=== PATIENT | male | born 1950 | race Caucasian/White ===

== ENCOUNTER 2017-05-23 12:44 | Inpatient (IN) | payer MEDICARE, OTHER ==
--- NOTE | 2017-05-23 13:02 | ED Physician Chart ---
ED Chief Complaint/HPI - Patient Information Date Seen:: 05/23/17 Time Seen:: 12:50 Chief Complaint:: Weakness History of Present Illness:: onset x 2 days of weakness and dizziness; no report of trauma, H/As, S/T, neck pain, C/P, SOB, Abd. Pain, A/N/V/D/C, fever, chills, or urinary s/s Historian:: Patient, EMS Review:: Nurse's Note Reviewed, Old Chart Reviewed, EMS run form Reviewed ED Review of Systems - Review of Systems General/Constitutional: No fever, No chills, No weight loss, No weakness, No diaphoresis, No edema, No loss of appetite Skin: No skin lesions, No rash, No bruising Head: No headache, No light-headedness Eyes: No loss of vision, No pain, No diplopia ENT: No earache, No nasal drainage, No sore throat, No tinnitus Neck: No neck pain, No swelling, No thyromegaly, No stiffness, No mass noted Cardio Vascular: No chest pain, No palpitations, No PND, No orthopnea, No edema Pulmonary: SOB, Cough, No sputum, Wheezing GI: No nausea, No vomiting, No diarrhea, No pain, No melena, No hematochezia, No constipation, No hematemesis G/U: No dysuria, No frequency, No hematuria, No nacturia Musculoskeletal: No bone or joint pain, No back pain, No muscle pain Endocrine: No polyuria, No polydipsia Psychiatric: No prior psych history, No depression, No anxiety, No suicidal ideation, No homicidal ideation, No auditory hallucination, No visual hallucination Hematopoietic: No bruising, No lymphadenopathy Allergic/Immuno: No urticaria, No angioedema Neurological: No syncope, No focal symptoms, Weakness, No paresthesia, No headache, No seizure, Dizziness, No confusion, No vertigo ED Past Medical History - Past Medical History Obtainable: Yes Past Medical History: HTN, Asthma/COPD, CVA/TIA, Renal stone Family History: Diabetes Melitus, HTN Social History: Non Smoker, No Alcohol, No Drug Use, Single, Care Facility Surgical History: Appendectomy, Cholecystectomy Psychiatricy History: None Medication: Reviewed Family Medical History - Family Member Mother History Unknown: Yes ED Physical Exam - Physical Examination General/Constitutional: Awake, Well-developed, well-nourished, Alert, No distress, GCS 15, Non-toxic appearing, Ambulatory Head: Atraumatic Eyes: Lids, conjuctiva normal, PERRL, EOMI Skin: Nl inspection, No rash, No skin lesions, No ecchymosis, Well hydrated, No lymphadenopathy ENMT: External ears, nose nl, TM canals nl, Nasal exam nl, Lips, teeth, gums nl , Oropharynx nl, Tonsils nl Neck: Nontender, Full ROM w/o pain, No JVD, No nuchal rigidity, No bruit, No mass, No stridor Respiratory: Nl effort/Exclusion, Clear to Auscultation, No Wheeze/Rhonchi/Rales Cardio Vascular: No murmur, gallop, rubs, NL S1 S2, Carotid/Femoral/Distal pulses equal bilaterally Other Cardio Vascular comments:: Irregular Irregular Rhythm GI: No tenderness/rebounding/guarding, No organomegaly, No hernia, Normal BS's, Nondistended, No mass/bruits, No McBurney tenderness : No CVA tenderness Extremities: No tenderness or effusion, Full ROM, normal strength in all extremities, No edema, Normal digits & nails Neuro/Psych: Alert/oriented, DTR's symmetric, Normal sensory exam, Normal motor strength, Judgement/insight normal, Mood normal, Normal gait, No focal deficits Misc: Normal back, No paraspinal tenderness ED Labs/Radiology/EKG Results - Lab Results Comments:: Ca+: 8.5; Albumin: 3.8 - Radiology Results Comments:: CXR: COPD - EKG Interpretations EKG Time:: 13:26 Rate & Rhythm: 82; Atrial Flutter Comments:: non-specific st-t changes ED Septic Shock - . Is Septic Shock (SBP<90, OR Lactate>4 mmol\L) present?: No ED Reassessment (Disposition) - Diagnosis Diagnosis:: Dx: Atrial Flutter; Atrial fibrillation; Hypocalcemia; Hypoalbuminemia; Weakness ; Dizziness; Cardiac arrythmias
[2017-05-23] MEDS ORDERED: Sodium Chloride 0.9% 1,000 ML IV ONE (13:03)
[2017-05-23 13:36] LABS: % BASOPHILS 0.1 % (0.0-2.0); % EOSINOPHILS 1.4 % (0.0-5.0); % LYMPHOCYTES 23.1 % (20.0-50.0); % MONOCYTES 8.7 % (2.0-10.0); % NEUTROPHILS 66.7 % (40.0-80.0); EOSINOPHILE ABSOLUTE 0.1 Th/cmm (0.1-0.4); HEMATOCRIT 41.7 % (41.0-60); HEMOGLOBIN 14.1 gm/dL (12-16); LYMPHOCYTE ABSOLUTE 1.8 Th/cmm (1.5-3.0); MEAN CELL VOLUME 90.5 fl (80-99); MEAN CORPUSCULAR HEMOGLOBIN 30.5 pg (26.0-30.0); MEAN CORPUSCULAR HGB CONC 33.7 pg (28.0-36.0); MEAN PLATELET VOLUME 8.8 fl; MONOCYTE ABSOLUTE 0.7 Th/cmm (0.3-1.0); NEUTROPHILE ABSOLUTE 5.3 Th/cmm (1.8-8.0); PLATELET COUNT 221 Th/cmm (150-400); RED CELL DISTRIBUTION WIDTH 14.7 % (11.5-20.0); WHITE BLOOD COUNT 7.9 Th/cmm (4.8-10.8)
--- NOTE | 2017-05-23 13:56 | Diagnostic Imaging Report ---
CHEST X-RAY: AP view INDICATION: pain COMPARISON: None FINDINGS: There is elevation of right hemidiaphragm. Mild chronic lung changes are noted.. There is no focal consolidation or pleural effusions The heart is normal in size. Postsurgical changes of the upper abdomen are noted. Degenerative changes of the spine are noted with mild scoliosis. Nonspecific gas-filled loops of bowel of the upper abdomen are noted. IMPRESSION: No focal consolidation identified. Postsurgical changes of the upper abdomen.
[2017-05-23 13:57] LABS: ALB/GLOB RATIO 1.7 (1.0-1.8); ALBUMIN 3.8 gm/dL (4.2-5.5); ALKALINE PHOSPHATASE 67 U/L (34-104); ANION GAP 9.9 (7.0-16.0); BILIRUBIN,TOTAL 0.4 mg/dL (0.3-1.0); BUN - UREA NITROGEN 15 mg/dL (7-25); CALCIUM SERUM 8.5 mg/dL (8.6-10.3); CARBON DIOXIDE 27.6 mEq/L (21.0-31.0); CHLORIDE 109 mEq/L (98-107); CHOLESTEROL 108 mg/dL (<200); CREATININE - SERUM 0.6 mg/dL (0.7-1.3); GFR AFRICAN-AMERICAN > 60.0 ml/min (>90); GFR NON AFRICAN-AMERICAN > 60.0 ml/min; GLUCOSE 101 mg/dL (70-105); HDL -HIGH DENSITY LIPOPROTEIN 55 mg/dL (23-92); POTASSIUM SERUM 3.5 mEq/L (3.5-5.1); SGOT 15 U/L (13-39); SGPT/ALT 15 U/L (7-52); SODIUM SERUM 143 mEq/L (136-145); TRIGLYCERIDES 70 mg/dL (<150)
[2017-05-23 13:58] LABS: AMYLASE SERUM < 10 U/L (29-103); LIPASE 8 U/L (11-82)
[2017-05-23 13:59] LABS: INR 1.02 (0.5-1.4); PROTHROMBIN TIME (TEST) 10.6 SECONDS (9.5-11.5)
[2017-05-23] MEDS ORDERED: Hydrocodone/APAP 5mg/325mg Tab PO ONE (18:25)
[2017-05-23] MEDS ORDERED: Hydrocodone/APAP 5mg/325mg Tab ONE (18:36)
[2017-05-23] MEDS ORDERED: Non-Formulary Item 1 EA (Fluticasone/Salmeterol [Advair 250-50 Diskus] 1 PUFF) INH PRN (20:22)
[2017-05-23] MEDS ORDERED: Albuterol Nebulizer 2.5mg/3mL HHN PRN (20:22)
[2017-05-23] MEDS ORDERED: Diltiazem 5 mg/mL 5mL Vial IVP PRN (20:24)
[2017-05-23] MEDS ORDERED: guaiFENesin 200 MG/10 ML UDC PO PRN (20:24)
[2017-05-23] MEDS ORDERED: Ipratropium Neb 0.5 mg/2.5 mL UD IH PRN (20:24)
[2017-05-24] MEDS: Hydrocodone/APAP 5mg/325mg Tab PO PRN ×4 (00:34→21:08)
[2017-05-24] MEDS: D5-0.45NS 1,000 ML IV SCH (10:47)
--- NOTE | 2017-05-24 12:57 | Internal Medicine Prog Note ---
Internal Medicine Subjective - Subjective Service Date: 05/24/17 ([id number] [facility] dictated) Internal Medicine Objective - Results Result Diagrams: 05/23/17 13:25 05/23/17 13:25 Recent Labs: Laboratory Last Values WBC 7.9 Th/cmm (4.8-10.8) 05/23/17 13:25 RBC 4.60 Mil/cmm (4.30-5.70) 05/23/17 13:25 Hgb 14.1 gm/dL (12-16) 05/23/17 13:25 Hct 41.7 % (41.0-60) 05/23/17 13:25 MCV 90.5 fl (80-99) 05/23/17 13:25 MCH 30.5 pg (26.0-30.0) H 05/23/17 13:25 MCHC Differential 33.7 pg (28.0-36.0) 05/23/17 13:25 RDW 14.7 % (11.5-20.0) 05/23/17 13:25 Plt Count 221 Th/cmm (150-400) 05/23/17 13:25 MPV 8.8 fl 05/23/17 13:25 Neutrophils % 66.7 % (40.0-80.0) 05/23/17 13:25 Lymphocytes % 23.1 % (20.0-50.0) 05/23/17 13:25 Monocytes % 8.7 % (2.0-10.0) 05/23/17 13:25 Eosinophils % 1.4 % (0.0-5.0) 05/23/17 13:25 Basophils % 0.1 % (0.0-2.0) 05/23/17 13:25 PT 10.6 SECONDS (9.5-11.5) 05/23/17 13:25 INR 1.02 (0.5-1.4) 05/23/17 13:25 Sodium 143 mEq/L (136-145) 05/23/17 13:25 Potassium 3.5 mEq/L (3.5-5.1) 05/23/17 13:25 Chloride 109 mEq/L (98-107) H 05/23/17 13:25 Carbon Dioxide 27.6 mEq/L (21.0-31.0) 05/23/17 13:25 Anion Gap 9.9 (7.0-16.0) 05/23/17 13:25 BUN 15 mg/dL (7-25) 05/23/17 13:25 Creatinine 0.6 mg/dL (0.7-1.3) L 05/23/17 13:25 Est GFR ( Amer) > 60.0 ml/min (>90) 05/23/17 13:25 Est GFR (Non-Af Amer) > 60.0 ml/min 05/23/17 13:25 BUN/Creatinine Ratio 25.0 05/23/17 13:25 Glucose 101 mg/dL (70-105) 05/23/17 13:25 Calcium 8.5 mg/dL (8.6-10.3) L 05/23/17 13:25 Total Bilirubin 0.4 mg/dL (0.3-1.0) 05/23/17 13:25 AST 15 U/L (13-39) 05/23/17 13:25 ALT 15 U/L (7-52) 05/23/17 13:25 Alkaline Phosphatase 67 U/L (34-104) 05/23/17 13:25 Creatine Kinase 55 U/L (30-223) 05/23/17 13:25 Troponin I 0.01 ng/mL (0.01-0.05) 05/23/17 13:25 B-Natriuretic Peptide 64.5 pg/mL (5.0-100.0) 05/23/17 13:25 Total Protein 6.0 gm/dL (6.0-8.3) 05/23/17 13:25 Albumin 3.8 gm/dL (4.2-5.5) L 05/23/17 13:25 Globulin 2.2 gm/dL 05/23/17 13:25 Albumin/Globulin Ratio 1.7 (1.0-1.8) 05/23/17 13:25 Triglycerides 70 mg/dL (<150) 05/23/17 13:25 Cholesterol 108 mg/dL (<200) 05/23/17 13:25 LDL Cholesterol Direct 46 mg/dL (75-193) L 05/23/17 13:25 HDL Cholesterol 55 mg/dL (23-92) 05/23/17 13:25 Amylase < 10 U/L (29-103) L 05/23/17 13:25 Lipase 8 U/L (11-82) L 05/23/17 13:25 - Physical Exam Vitals and I&O: Vital Signs Temp 98.1 F 05/24/17 12:00 Pulse 67 05/24/17 12:00 Resp 18 05/24/17 12:00 BP 115/77 05/24/17 12:00 Pulse Ox 96 05/24/17 12:00 Intake & Output 05/23/17 05/24/17 05/24/17 18:59 06:59 18:59 Intake Total 200 Output Total 1480 Balance -1280 Weight (lbs) 146 lb Intake: Oral 200 Output: Urine 1480 Other: # Bowel Movements 0 Stool Characteristics Formed Active Medications: Current Medications Acetaminophen (Tylenol) 650 mg PO Q4H PRN PRN Reason: Mild Pain Or Fever above 101 Stop: 07/22/17 20:23 Acetaminophen/Hydrocodone Bitart (Springer 5mg/325mg) 1 tab PO Q6H PRN PRN Reason: Pain (Severe) Stop: 07/22/17 20:21 Last Admin: 05/24/17 12:23 Dose: 1 tab Albuterol Sulfate (Albuterol 2.5mg/3ml Neb Ud) 2.5 mg HHN Q2HRT PRN PRN Reason: Shortness of Breath or Wheeze Stop: 07/22/17 20:23 Alprazolam (Xanax) 0.5 mg PO Q6H PRN; Protocol PRN Reason: Anxiety Stop: 07/22/17 20:21 Last Admin: 05/24/17 12:23 Dose: 0.5 mg Bisacodyl (Dulcolax 10 Mg Supp) 10 mg RC DAILY [facility] Stop: 07/23/17 08:59 Last Admin: 05/24/17 09:50 Dose: 10 mg Clopidogrel Bisulfate (Plavix) 75 mg PO DAILY [facility] Stop: 07/23/17 08:59 Last Admin: 05/24/17 09:50 Dose: 75 mg Diltiazem HCl (Cardizem) 20 mg IVP Q4H PRN PRN Reason: HR Greater than 130 per min Stop: 07/22/17 20:23 Docusate Sodium (Colace) 100 mg PO BID [facility] Stop: 07/23/17 08:59 Last Admin: 05/24/17 09:50 Dose: 100 mg Gabapentin (Neurontin) 100 mg PO TID [facility] Stop: 07/22/17 20:59 Last Admin: 05/24/17 09:50 Dose: 100 mg Guaifenesin (Robitussin) 200 mg PO Q4HR PRN PRN Reason: Cough or Congestion Stop: 07/22/17 20:23 Dextrose/Sodium Chloride (D5-0.45ns) 1,000 mls @ 80 mls/hr IV .[id number] [facility] Stop: 07/22/17 20:29 Last Admin: 05/24/17 10:47 Dose: 80 mls/hr Ipratropium [place] (Atrovent Neb 0.5mg/2.5ml) 0.5 mg IH Q2HRT PRN PRN Reason: Shortness of Breath or Wheeze Stop: 07/22/17 20:23 Miscellaneous (Fluticasone/Salmeterol [Advair 250-50 Diskus]) 1 puff INH BID PRN PRN Reason: Shortness of Breath Nitroglycerin (Nitrostat) 0.4 mg SL Q5MIN PRN PRN Reason: Chest Pain Stop: 07/22/17 20:21 Olanzapine (Zyprexa) 5 mg PO HS [facility] PRN Reason: Protocol Stop: 07/22/17 20:59 Last Admin: 05/23/17 22:28 Dose: 5 mg Ondansetron HCl (Zofran Odt) 4 mg PO Q6HR PRN PRN Reason: Nausea / Vomiting Stop: 07/22/17 20:21 Ondansetron HCl (Zofran) 4 mg IV Q8H PRN PRN Reason: Nausea / Vomiting Stop: 07/22/17 20:23 Senna (Senna) 8.6 mg PO HS [facility] Stop: 07/22/17 20:59 Last Admin: 05/23/17 22:29 Dose: 8.6 mg Tamsulosin HCl (Flomax) 0.4 mg PO HS [facility] Stop: 07/22/17 20:59 Last Admin: 05/23/17 22:29 Dose: 0.4 mg Trazodone HCl (Desyrel) 50 mg PO HS PRN; Protocol PRN Reason: Insomnia Stop: 07/22/17 20:21 Last Admin: 05/24/17 02:15 Dose: 50 mg
[2017-05-24] MEDS ORDERED: Hydrocodone/APAP 10 mg/325 mg Tab PO PRN (13:50)
--- NOTE | 2017-05-24 14:46 | Diagnostic Imaging Report ---
CT scan of the brain without contrast History: Headache, trauma Total DLP equals 697 CTDI equals 37.6 Axial sections were obtained from the base of the skull to the vertex. There is a normal ventricular system size. No focal parenchymal lesions are seen. No evidence of any mass effect or shift of midline structures. No extra-axial masses or abnormal fluid collections. Mucosal thickening noted within the ethmoid sinuses, nasopharyngeal region, and right maxillary sinus. There is complete opacification of the lumen of the left maxillary sinus. The distal portion of the nasal bones is off the [id number]. Impression: 1. No acute intracerebral abnormalities 2. Extensive mucosal thickening within the paranasal sinuses with complete opacification of the left maxillary sinus. Findings consistent with inflammatory change. Clinical correlation is needed.
--- NOTE | 2017-05-24 14:49 | Diagnostic Imaging Report ---
CT scan lumbar spine HISTORY: Pain Total DLP equals 1235 CTDI equals 37.0 Axial sections were obtained through the lumbar spine. Additional sagittal and coronal reformatted images are provided. There is generalized osteoporosis throughout the spine. Small spur formation noted about the endplates of all vertebrae. Findings most pronounced at L3-4. Narrowing of the L3-4 interspace. No acute abnormalities. No fractures. Additional degenerative changes noted in the visualized lower thoracic spine. Mild atherosclerotic calcification seen in the aorta. Incidentally noted is mild dilatation of the right renal pelvis and visualized portion of the right ureter. Findings of questionable significance and should be correlated clinically. IMPRESSION: 1. Diffuse degenerative changes most pronounced at L3-4 2. Generalized osteoporosis 3. Mild atherosclerotic vascular changes 4. Mild dilatation of the right renal pelvis along with dilatation of the visualized portion of the right ureter. Findings of questionable significance but should be correlated clinically.
[2017-05-24] MEDS ORDERED: VTE Chemical Prophylaxis Screen/Admission MC PRN (17:07)
--- NOTE | 2017-05-24 21:02 | History & Physical ---
ADMIT DATE: 05/23/2017 CHIEF COMPLAINT: Weakness, dizziness, and heart pounding. HISTORY OF PRESENT ILLNESS: This is a 66-year-old male who is a board and care resident, who was brought here to [facility] due to 3-day history of weakness and dizziness. According to the patient, for the past 3 days he has been feeling that his heart is about to pop out of his chest. He denies any chest pain. He says that it is more of anxiety. He also states that he recently fell about a week ago. He states that he hit his head onto the wall, who complains of chronic back pain as well. Upon examination, the patient is awake and alert, denies any chest pain, but complains of chronic back pain. PAST MEDICAL HISTORY: Hypertension, asthma, COPD, CVA, TIA. FAMILY HISTORY: Noncontributory. SOCIAL HISTORY: The patient is a board and care resident. SURGICAL HISTORY: Appendectomy and cholecystectomy. MEDICATIONS: Please see medication reconciliation. REVIEW OF SYSTEMS: GENERAL: Denies any fevers, any chills. CARDIOVASCULAR: Denies chest pain. RESPIRATORY: Denies shortness of breath. GASTROINTESTINAL: Denies nausea, vomiting, abdominal pain. GENITOURINARY: Denies increased frequency or dysuria. NEUROLOGIC: No headache, seizures, or syncope. All other systems are reviewed and are negative. PHYSICAL EXAMINATION: GENERAL: This is an elderly male, awake and alert, in no apparent distress. VITAL SIGNS: Temperature 99.1, heart rate 67, blood pressure 115/77, respirations 18, and O2 96%. HEENT: Head is atraumatic and normocephalic. NECK: Supple. No mass. LUNGS: Clear bilaterally. HEART: Regular rate and rhythm. ABDOMEN: Soft and nontender. LABORATORY DATA: WBC 7.0, H and H 14.1 and 41.7, and platelet of 221. Sodium 143, potassium 3.5, chloride 109, BUN 13, creatinine 0.6, calcium 8.5, albumin 3.8, . DIAGNOSTIC: The patient had a chest x-ray done and the impression is no focal consolidation identified. Postsurgical changes of the upper abdomen. ASSESSMENT: Jarratt fibrillation, chronic back pain, mild protein-calorie malnutrition, generalized weakness, hypertension, asthma, chronic obstructive pulmonary disease, history of cerebrovascular accident, and hypocalcemia. PLAN: The patient to be admitted to telemetry unit. We will get high school guidance counselor on the case, get a 2D echocardiogram, put patient on IV fluids for hydration. Fall precautions will be initiated. We will get physical therapy. We will get CT of the cervical spine. We will continue to monitor the patient. JOB# [id number]
--- NOTE | 2017-05-25 00:15 | Consultation ---
DATE OF CONSULTATION: 05/24/[address] Rodriguez. HISTORY OF PRESENT ILLNESS: This is a 66-year-old male patient who was brought to the hospital because of psychiatric problem. The patient in the Emergency Room, was admitted on telemetry bed for possible atrial fibrillation with EKG, normal sinus rhythm, baseline artifact from the movement. PAST MEDICAL HISTORY: Seizure disorder, hypertension, COPD, kidney stones, dementia, and chronic constipation. FAMILY HISTORY: Unremarkable. SOCIAL HISTORY: No history of smoking or alcohol abuse. ALLERGIES: None. PHYSICAL EXAMINATION: VITAL SIGNS: Blood pressure 130/80, pulse 70, and respirations 20. HEAD: Normocephalic. No lumps or bumps. EYES: Pupils equal, reactive to light. Fundi show AV nicking, sclerae white, conjunctivae pink. NECK: Carotid 2+. Normal upstroke. JVD flat. Thyroid not palpable. Lymph nodes not palpable. CHEST: Shows increased AP diameter. No kyphosis, scoliosis. LUNGS: Bilateral bronchovesicular breath sounds. HEART: PMI fifth intercostal space with lateral to midclavicular line. S1, S2. No S3, S4. soft systolic murmur. ABDOMEN: Soft. Liver, spleen not palpable. No organomegaly. Bowel sounds active. NEUROLOGIC: Unremarkable except seizure disorder. EXTREMITIES: Peripheral pulses 2+. No pedal edema. CLINICAL IMPRESSION: The patient had a seizure disorder, no evidence of atrial fibrillation, hypertension, chronic obstructive pulmonary disease, kidney stone, dementia, chronic constipation, psych problem, etiology unknown. PLAN: The patient's troponin level normal. The patient to continue present care. No further cardiac evaluation needed at this time. [facility]# [id number]
--- NOTE | 2017-05-25 00:28 | Consultation ---
DATE OF CONSULTATION: 05/24/2017 PSYCHIATRIC CONSULTATION CHIEF COMPLAINT: "I am not doing well." HISTORY OF PRESENT ILLNESS: The patient is a 66-year-old male who is known to myself from treatment at [facility], was sent to the ER for being altered. The patient has chronic pain issues and anxiety symptoms and some mood swings, possible bipolar disorder. The patient also has been on large amounts of opiates, which was decreased dramatically during his recent hospitalization at [facility]. The patient is currently on medical floor. The patient feels a bit tired and weak and little bit depressed, but no suicidal thoughts and has been cooperative with staff. PAST PSYCHIATRIC HISTORY: The patient was recently hospitalized at [facility] with a recent episode where he was grandiose, saying he was Jet so . He was grandiose, but at times he would have some episodes of depression. PAST MEDICAL HISTORY: Refer to H and P. The patient with some medical issues, atrial fibrillation, cardiac arrhythmias, dizziness, weakness, history of hypertension, COPD, CVA, renal stones. PSYCHOSOCIAL HISTORY: The patient was residing at [facility], unclear if he can return. Family is very supportive and involved in his care. MENTAL STATUS EXAMINATION: The patient is cooperative, slightly disheveled. Speech fluent, occasionally becomes fast. Affect somewhat labile, anxious. No other visual hallucinations. No delusional thoughts at this time. He is oriented x 3. ASSESSMENT: Psychosis, not otherwise specified, versus bipolar disorder. We will continue Zyprexa 5 mg p.o. at bedtime. Depakote was discontinued. Monitor condition closely. Try to avoid sedative, hypnotics if possible. We will follow closely while in the hospital. Thank you for the consultation. JOB# [id number]
[2017-05-25] MEDS: Hydrocodone/APAP 5mg/325mg Tab PO PRN ×2 (03:06→09:57)
[2017-05-25 06:46] LABS: % LYMPHOCYTES 33.6 % (20.0-50.0); % MONOCYTES 5.9 % (2.0-10.0); % NEUTROPHILS 55.5 % (40.0-80.0); BASOPHILE ABSOLUTE 0.1 Th/cumm (0-0.2); EOSINOPHILE ABSOLUTE 0.3 Th/cmm (0.1-0.4); HEMOGLOBIN 12.4 gm/dL (12-16); LYMPHOCYTE ABSOLUTE 2.2 Th/cmm (1.5-3.0); MEAN CELL VOLUME 91.2 fl (80-99); MEAN CORPUSCULAR HEMOGLOBIN 30.3 pg (26.0-30.0); MEAN CORPUSCULAR HGB CONC 33.2 pg (28.0-36.0); MEAN PLATELET VOLUME 8.9 fl; MONOCYTE ABSOLUTE 0.4 Th/cmm (0.3-1.0); NEUTROPHILE ABSOLUTE 3.5 Th/cmm (1.8-8.0); PLATELET COUNT 188 Th/cmm (150-400); RED BLOOD COUNT 4.11 Mil/cmm (4.30-5.70); RED CELL DISTRIBUTION WIDTH 14.8 % (11.5-20.0); WHITE BLOOD COUNT 6.5 Th/cmm (4.8-10.8)
[2017-05-25 07:03] LABS: HEMATOCRIT 37.5 % (41.0-60)
[2017-05-25 07:39] LABS: ANION GAP 8.3 (7.0-16.0); BUN - UREA NITROGEN 12 mg/dL (7-25); CALCIUM SERUM 8.1 mg/dL (8.6-10.3); CARBON DIOXIDE 24.9 mEq/L (21.0-31.0); CHLORIDE 110 mEq/L (98-107); GLUCOSE 109 mg/dL (70-105); POTASSIUM SERUM 3.2 mEq/L (3.5-5.1); SODIUM SERUM 140 mEq/L (136-145)
[2017-05-25 07:58] LABS: CREATININE - SERUM 0.5 mg/dL (0.7-1.3); GFR AFRICAN-AMERICAN > 60.0 ml/min (>90); GFR NON AFRICAN-AMERICAN > 60.0 ml/min
[2017-05-25] MEDS ORDERED: Potassium Chloride 20 mEq ER Tab PO ONE (11:49)
--- NOTE | 2017-05-25 13:26 | Internal Medicine Prog Note ---
Internal Medicine Subjective - Subjective Service Date: 05/25/17 Patient seen and examined:: with staff Patient is:: awake, verbal Per staff patient has:: tolerating meds Internal Medicine Objective - Results Result Diagrams: 05/25/17 06:20 05/25/17 06:20 Recent Labs: Laboratory Last Values WBC 6.5 Th/cmm (4.8-10.8) 05/25/17 06:20 RBC 4.11 Mil/cmm (4.30-5.70) L 05/25/17 06:20 Hgb 12.4 gm/dL (12-16) 05/25/17 06:20 Hct 37.5 % (41.0-60) L D 05/25/17 06:20 MCV 91.2 fl (80-99) 05/25/17 06:20 MCH 30.3 pg (26.0-30.0) H 05/25/17 06:20 MCHC Differential 33.2 pg (28.0-36.0) 05/25/17 06:20 RDW 14.8 % (11.5-20.0) 05/25/17 06:20 Plt Count 188 Th/cmm (150-400) 05/25/17 06:20 MPV 8.9 fl 05/25/17 06:20 Neutrophils % 55.5 % (40.0-80.0) 05/25/17 06:20 Lymphocytes % 33.6 % (20.0-50.0) 05/25/17 06:20 Monocytes % 5.9 % (2.0-10.0) 05/25/17 06:20 Eosinophils % 4.0 % (0.0-5.0) 05/25/17 06:20 Basophils % 1.0 % (0.0-2.0) 05/25/17 06:20 PT 10.6 SECONDS (9.5-11.5) 05/23/17 13:25 INR 1.02 (0.5-1.4) 05/23/17 13:25 Sodium 140 mEq/L (136-145) 05/25/17 06:20 Potassium 3.2 mEq/L (3.5-5.1) L 05/25/17 06:20 Chloride 110 mEq/L (98-107) H 05/25/17 06:20 Carbon Dioxide 24.9 mEq/L (21.0-31.0) 05/25/17 06:20 Anion Gap 8.3 (7.0-16.0) 05/25/17 06:20 BUN 12 mg/dL (7-25) 05/25/17 06:20 Creatinine 0.5 mg/dL (0.7-1.3) L 05/25/17 06:20 Est GFR ( Amer) > 60.0 ml/min (>90) 05/25/17 06:20 Est GFR (Non-Af Amer) > 60.0 ml/min 05/25/17 06:20 BUN/Creatinine Ratio 24.0 05/25/17 06:20 Glucose 109 mg/dL (70-105) H 05/25/17 06:20 Calcium 8.1 mg/dL (8.6-10.3) L 05/25/17 06:20 Total Bilirubin 0.4 mg/dL (0.3-1.0) 05/23/17 13:25 AST 15 U/L (13-39) 05/23/17 13:25 ALT 15 U/L (7-52) 05/23/17 13:25 Alkaline Phosphatase 67 U/L (34-104) 05/23/17 13:25 Ammonia 57 umol/L (16-53) H 05/25/17 06:20 Creatine Kinase 55 U/L (30-223) 05/23/17 13:25 Troponin I 0.01 ng/mL (0.01-0.05) 05/23/17 13:25 B-Natriuretic Peptide 64.5 pg/mL (5.0-100.0) 05/23/17 13:25 Total Protein 6.0 gm/dL (6.0-8.3) 05/23/17 13:25 Albumin 3.8 gm/dL (4.2-5.5) L 05/23/17 13:25 Globulin 2.2 gm/dL 05/23/17 13:25 Albumin/Globulin Ratio 1.7 (1.0-1.8) 05/23/17 13:25 Triglycerides 70 mg/dL (<150) 05/23/17 13:25 Cholesterol 108 mg/dL (<200) 05/23/17 13:25 LDL Cholesterol Direct 46 mg/dL (75-193) L 05/23/17 13:25 HDL Cholesterol 55 mg/dL (23-92) 05/23/17 13:25 Amylase < 10 U/L (29-103) L 05/23/17 13:25 Lipase 8 U/L (11-82) L 05/23/17 13:25 - Physical Exam Vitals and I&O: Vital Signs Temp 98 F 05/25/17 07:15 Pulse 73 05/25/17 08:51 Resp 18 05/25/17 08:51 BP 105/70 05/25/17 07:15 Pulse Ox 96 05/25/17 08:51 Intake & Output 05/24/17 05/25/17 05/25/17 18:59 06:59 18:59 Intake Total 800 1100 Output Total 1700 2100 Balance -900 -1000 Weight (lbs) 164 lb 6.4 oz 164 lb 158 lb Intake: Oral 800 1100 Tube Feeding 0 Output: Urine 1700 2100 Other: # Bowel Movements 2 0 Stool Characteristics Formed Formed Active Medications: Current Medications Acetaminophen (Tylenol) 650 mg PO Q4H PRN PRN Reason: Mild Pain Or Fever above 101 Stop: 07/22/17 20:23 Acetaminophen/Hydrocodone Bitart (Rush 5mg/325mg) 1 tab PO Q6H PRN PRN Reason: Pain (Severe) Stop: 07/22/17 20:21 Last Admin: 05/25/17 09:57 Dose: 1 tab Albuterol Sulfate (Albuterol 2.5mg/3ml Neb Ud) 2.5 mg HHN Q2HRT PRN PRN Reason: Shortness of Breath or Wheeze Stop: 07/22/17 20:23 Alprazolam (Xanax) 0.5 mg PO Q6H PRN; Protocol PRN Reason: Anxiety Stop: 07/22/17 20:21 Last Admin: 05/25/17 06:56 Dose: 0.5 mg Bisacodyl (Dulcolax 10 Mg Supp) 10 mg RC DAILY [facility] Stop: 07/23/17 08:59 Last Admin: 05/25/17 09:47 Dose: 10 mg Clopidogrel Bisulfate (Plavix) 75 mg PO DAILY [facility] Stop: 07/23/17 08:59 Last Admin: 05/25/17 09:46 Dose: 75 mg Diltiazem HCl (Cardizem) 20 mg IVP Q4H PRN PRN Reason: HR Greater than 130 per min Stop: 07/22/17 20:23 Docusate Sodium (Colace) 100 mg PO BID [facility] Stop: 07/23/17 08:59 Last Admin: 05/25/17 09:47 Dose: 100 mg Gabapentin (Neurontin) 100 mg PO TID [facility] Stop: 07/22/17 20:59 Last Admin: 05/25/17 13:21 Dose: 100 mg Guaifenesin (Robitussin) 200 mg PO Q4HR PRN PRN Reason: Cough or Congestion Stop: 07/22/17 20:23 Heparin Sodium (Porcine) (Heparin) 5,000 units SUBQ Q12H [facility] Stop: 07/23/17 20:59 Last Admin: 05/25/17 09:47 Dose: 5,000 units Dextrose/Sodium Chloride (D5-0.45ns) 1,000 mls @ 80 mls/hr IV .[id number] [facility] Stop: 07/22/17 20:29 Last Admin: 05/24/17 10:47 Dose: 80 mls/hr Miscellaneous (Vte [employer] Prophylaxis Screen/ Admission) 1 ea [facility] PRN PRN PRN Reason: PROTOCOL Stop: 07/23/17 17:06 Nitroglycerin (Nitrostat) 0.4 mg SL Q5MIN PRN PRN Reason: Chest Pain Stop: 07/22/17 20:21 Olanzapine (Zyprexa) 5 mg PO [facility] PRN Reason: Protocol Stop: 07/22/17 20:59 Last Admin: 05/24/17 21:08 Dose: 5 mg Ondansetron HCl (Zofran Odt) 4 mg PO Q6HR PRN PRN Reason: Nausea / Vomiting Stop: 07/22/17 20:21 Ondansetron HCl (Zofran) 4 mg IV Q8H PRN PRN Reason: Nausea / Vomiting Stop: 07/22/17 20:23 Senna (Senna) 8.6 mg PO HS [facility] Stop: 07/22/17 20:59 Last Admin: 05/24/17 23:07 Dose: Not Given Tamsulosin HCl (Flomax) 0.4 mg PO [facility] Stop: 07/22/17 20:59 Last Admin: 05/24/17 21:08 Dose: 0.4 mg Tramadol HCl (Ultram) 50 mg PO Q6HR PRN PRN Reason: Pain (Moderate) Stop: 07/23/17 13:48 Last Admin: 05/25/17 06:56 Dose: 50 mg Trazodone HCl (Desyrel) 50 mg PO HS PRN; Protocol PRN Reason: Insomnia Stop: 07/22/17 20:21 Last Admin: 05/25/17 02:30 Dose: 50 mg General: weak HEENT: NC/AT, PERRLA Neck: Supple Cardiovascular: RRR, Normal S1, Normal S2 Abdomen: soft, non-tender, non-distended, positive bowel sound Neurological: alert Internal Medicine Assmt/Plan - Assessment Assessment: afib chronic back pain mild protein calorie malnutrition generalized weakness - Plan Plan: pain mgmt cbc/bmp in am fall precautions continue current plan of care
--- NOTE | 2017-05-25 17:24 | Cardiology ---
05/24/2017 ECHOCARDIOGRAM REPORT The patient of Dr. Rodriguez. M-MODE ECHOCARDIOGRAM: Mitral valve, anterior leaflet of mitral valve shows normal excursion, EF velocity. Posterior leaflet of the mitral valve shows normal excursion. Left ventricle posterior wall shows increased thickness, normal excursion. Interventricular septum shows increased thickness, normal excursion, hypertrophy of the left ventricle, ejection fraction 55%. Left atrium normal. Aortic root shows normal dimension, normal excursion of aortic leaflets. CONCLUSION: Hypertrophy of the left ventricle, ejection fraction 55%. 2D echo on the same patient, long axis view showed normal-sized left ventricle with hypertrophy of the left ventricle. Left atrium normal. Aortic root shows normal dimension, normal excursion of aortic leaflets. Short axis view of mitral valve normal. Short axis view of aortic valve normal. Apical four chamber view showed normal-sized left ventricle, left atrium, right ventricle, right atrium, tricuspid, and mitral valve. Ejection fraction 55%. CONCLUSION: Hypertrophy of the left ventricle, ejection fraction 55%. Doppler study showed trace mitral regurgitation, tricuspid regurgitation, aortic regurgitation. [facility]# [id number]
[2017-05-26] MEDS: Hydrocodone/APAP 5mg/325mg Tab PO PRN ×3 (00:11→20:39)
[2017-05-26] MEDS: Albuterol Nebulizer 2.5mg/3mL HHN PRN (01:45)
[2017-05-26] MEDS: D5-0.45NS 1,000 ML IV SCH (04:12)
[2017-05-26 06:08] LABS: % BASOPHILS 0.7 % (0.0-2.0); % LYMPHOCYTES 25.4 % (20.0-50.0); % MONOCYTES 7.8 % (2.0-10.0); % NEUTROPHILS 63.1 % (40.0-80.0); BASOPHILE ABSOLUTE 0.1 Th/cumm (0-0.2); EOSINOPHILE ABSOLUTE 0.2 Th/cmm (0.1-0.4); HEMATOCRIT 38.7 % (41.0-60); HEMOGLOBIN 13.1 gm/dL (12-16); LYMPHOCYTE ABSOLUTE 1.9 Th/cmm (1.5-3.0); MEAN CELL VOLUME 90.9 fl (80-99); MEAN CORPUSCULAR HEMOGLOBIN 30.8 pg (26.0-30.0); MEAN CORPUSCULAR HGB CONC 33.9 pg (28.0-36.0); MEAN PLATELET VOLUME 9.1 fl; MONOCYTE ABSOLUTE 0.6 Th/cmm (0.3-1.0); NEUTROPHILE ABSOLUTE 4.6 Th/cmm (1.8-8.0); PLATELET COUNT 211 Th/cmm (150-400); RED BLOOD COUNT 4.26 Mil/cmm (4.30-5.70); RED CELL DISTRIBUTION WIDTH 14.8 % (11.5-20.0); WHITE BLOOD COUNT 7.4 Th/cmm (4.8-10.8)
[2017-05-26 06:30] LABS: BUN - UREA NITROGEN 13 mg/dL (7-25); CALCIUM SERUM 8.2 mg/dL (8.6-10.3); CARBON DIOXIDE 24.3 mEq/L (21.0-31.0); CHLORIDE 110 mEq/L (98-107); CREATININE - SERUM 0.6 mg/dL (0.7-1.3); GFR AFRICAN-AMERICAN > 60.0 ml/min (>90); GFR NON AFRICAN-AMERICAN > 60.0 ml/min; GLUCOSE 158 mg/dL (70-105); MAGNESIUM 1.9 mg/dL (1.9-2.7); POTASSIUM SERUM 3.3 mEq/L (3.5-5.1); SODIUM SERUM 140 mEq/L (136-145)
[2017-05-26 13:16] LABS: FOLIC ACID 10.2 ng/mL (>3.0)
--- NOTE | 2017-05-26 15:31 | Internal Medicine Prog Note ---
Internal Medicine Subjective - Subjective Service Date: 05/26/17 Patient seen and examined:: with staff Patient is:: awake, verbal Per staff patient has:: tolerating meds Internal Medicine Objective - Results Result Diagrams: 05/26/17 05:30 05/26/17 05:30 Recent Labs: Laboratory Last Values WBC 7.4 Th/cmm (4.8-10.8) 05/26/17 05:30 RBC 4.26 Mil/cmm (4.30-5.70) L 05/26/17 05:30 Hgb 13.1 gm/dL (12-16) 05/26/17 05:30 Hct 38.7 % (41.0-60) L 05/26/17 05:30 MCV 90.9 fl (80-99) 05/26/17 05:30 MCH 30.8 pg (26.0-30.0) H 05/26/17 05:30 MCHC Differential 33.9 pg (28.0-36.0) 05/26/17 05:30 RDW 14.8 % (11.5-20.0) 05/26/17 05:30 Plt Count 211 Th/cmm (150-400) 05/26/17 05:30 MPV 9.1 fl 05/26/17 05:30 Neutrophils % 63.1 % (40.0-80.0) 05/26/17 05:30 Lymphocytes % 25.4 % (20.0-50.0) 05/26/17 05:30 Monocytes % 7.8 % (2.0-10.0) 05/26/17 05:30 Eosinophils % 3.0 % (0.0-5.0) 05/26/17 05:30 Basophils % 0.7 % (0.0-2.0) 05/26/17 05:30 PT 10.6 SECONDS (9.5-11.5) 05/23/17 13:25 INR 1.02 (0.5-1.4) 05/23/17 13:25 Sodium 140 mEq/L (136-145) 05/26/17 05:30 Potassium 3.3 mEq/L (3.5-5.1) L 05/26/17 05:30 Chloride 110 mEq/L (98-107) H 05/26/17 05:30 Carbon Dioxide 24.3 mEq/L (21.0-31.0) 05/26/17 05:30 Anion Gap 9.0 (7.0-16.0) 05/26/17 05:30 BUN 13 mg/dL (7-25) 05/26/17 05:30 Creatinine 0.6 mg/dL (0.7-1.3) L 05/26/17 05:30 Est GFR ( Amer) > 60.0 ml/min (>90) 05/26/17 05:30 Est GFR (Non-Af Amer) > 60.0 ml/min 05/26/17 05:30 BUN/Creatinine Ratio 21.7 05/26/17 05:30 Glucose 158 mg/dL (70-105) H 05/26/17 05:30 Calcium 8.2 mg/dL (8.6-10.3) L 05/26/17 05:30 Magnesium 1.9 mg/dL (1.9-2.7) 05/26/17 05:30 Total Bilirubin 0.4 mg/dL (0.3-1.0) 05/23/17 13:25 AST 15 U/L (13-39) 05/23/17 13:25 ALT 15 U/L (7-52) 05/23/17 13:25 Alkaline Phosphatase 67 U/L (34-104) 05/23/17 13:25 Ammonia 57 umol/L (16-53) H 05/25/17 06:20 Creatine Kinase 55 U/L (30-223) 05/23/17 13:25 Troponin I 0.01 ng/mL (0.01-0.05) 05/23/17 13:25 B-Natriuretic Peptide 64.5 pg/mL (5.0-100.0) 05/23/17 13:25 Total Protein 6.0 gm/dL (6.0-8.3) 05/23/17 13:25 Albumin 3.8 gm/dL (4.2-5.5) L 05/23/17 13:25 Globulin 2.2 gm/dL 05/23/17 13:25 Albumin/Globulin Ratio 1.7 (1.0-1.8) 05/23/17 13:25 Triglycerides 70 mg/dL (<150) 05/23/17 13:25 Cholesterol 108 mg/dL (<200) 05/23/17 13:25 LDL Cholesterol Direct 46 mg/dL (75-193) L 05/23/17 13:25 HDL Cholesterol 55 mg/dL (23-92) 05/23/17 13:25 Amylase < 10 U/L (29-103) L 05/23/17 13:25 Lipase 8 U/L (11-82) L 05/23/17 13:25 Vitamin B12 261 pg/mL (232-1245) 05/25/17 06:20 Folic Acid 10.2 ng/mL (>3.0) 05/25/17 06:20 - Physical Exam Vitals and I&O: Vital Signs Temp 98.2 F 05/26/17 15:27 Pulse 66 05/26/17 15:27 Resp 19 05/26/17 15:27 BP 110/65 05/26/17 15:27 Pulse Ox 95 05/26/17 15:27 Intake & Output 05/25/17 05/26/17 05/26/17 18:59 06:59 18:59 Intake Total 680 Output Total 1000 Balance -320 Weight (lbs) 158 lb 158 lb Intake: Intake, IV Amount 180 D5-0.45NS 1,000 ml @ 80 180 mls/hr IV .[id number] [facility] Rx #:[id number] Oral 500 Output: Urine 1000 Other: # Bowel Movements 0 Stool Characteristics Formed Active Medications: Current Medications Acetaminophen (Tylenol) 650 mg PO Q4H PRN PRN Reason: Mild Pain Or Fever above 101 Stop: 07/22/17 20:23 Acetaminophen/Hydrocodone Bitart ([place] 5mg/325mg) 1 tab PO Q6H PRN PRN Reason: Pain (Severe) Stop: 07/22/17 20:21 Last Admin: 05/26/17 09:15 Dose: 1 tab Albuterol Sulfate (Albuterol 2.5mg/3ml Neb Ud) 2.5 mg HHN Q2HRT PRN PRN Reason: Shortness of Breath or Wheeze Stop: 07/22/17 20:23 Last Admin: 05/26/17 01:45 Dose: 2.5 mg Alprazolam (Xanax) 0.5 mg PO Q6H PRN; Protocol PRN Reason: Anxiety Stop: 07/22/17 20:21 Last Admin: 05/26/17 04:12 Dose: 0.5 mg Bisacodyl (Dulcolax 10 Mg Supp) 10 mg RC DAILY [facility] Stop: 07/23/17 08:59 Last Admin: 05/26/17 09:15 Dose: 10 mg Clopidogrel Bisulfate (Plavix) 75 mg PO DAILY [facility] Stop: 07/23/17 08:59 Last Admin: 05/26/17 09:15 Dose: 75 mg Diltiazem HCl (Cardizem) 20 mg IVP Q4H PRN PRN Reason: HR Greater than 130 per min Stop: 07/22/17 20:23 Docusate Sodium (Colace) 100 mg PO BID [facility] Stop: 07/23/17 08:59 Last Admin: 05/26/17 09:15 Dose: 100 mg Gabapentin (Neurontin) 100 mg PO TID [facility] Stop: 07/22/17 20:59 Last Admin: 05/26/17 13:14 Dose: 100 mg Guaifenesin (Robitussin) 200 mg PO Q4HR PRN PRN Reason: Cough or Congestion Stop: 07/22/17 20:23 Heparin Sodium (Porcine) (Heparin) 5,000 units SUBQ Q12H [facility] Stop: 07/23/17 20:59 Last Admin: 05/26/17 09:16 Dose: 5,000 units Ketorolac Tromethamine (Toradol) 30 mg IVP Q8HR PRN PRN Reason: Pain (Severe) Stop: 07/25/17 13:40 Miscellaneous (Vte Chemical Prophylaxis Screen/ Admission) 1 ea [facility] PRN PRN PRN Reason: PROTOCOL Stop: 07/23/17 17:06 Mupirocin (Bactroban Oint) 1 appl NS BID [facility] Stop: 05/30/17 09:01 Last Admin: 05/26/17 09:15 Dose: 1 appl Nitroglycerin (Nitrostat) 0.4 mg SL Q5MIN PRN PRN Reason: Chest Pain Stop: 07/22/17 20:21 Olanzapine (Zyprexa) 5 mg PO HS BRANDY PRN Reason: Protocol Stop: 07/22/17 20:59 Last Admin: 05/25/17 21:49 Dose: 5 mg Ondansetron HCl (Zofran Odt) 4 mg PO Q6HR PRN PRN Reason: Nausea / Vomiting Stop: 07/22/17 20:21 Ondansetron HCl (Zofran) 4 mg IV Q8H PRN PRN Reason: Nausea / Vomiting Stop: 07/22/17 20:23 Senna (Senna) 8.6 mg PO HS BRANDY Stop: 07/22/17 20:59 Last Admin: 05/25/17 21:49 Dose: 8.6 mg Tamsulosin HCl (Flomax) 0.4 mg PO HS BRANDY Stop: 07/22/17 20:59 Last Admin: 05/25/17 21:49 Dose: 0.4 mg Tramadol HCl (Ultram) 50 mg PO Q6HR PRN PRN Reason: Pain (Moderate) Stop: 07/23/17 13:48 Last Admin: 05/26/17 05:21 Dose: 50 mg Trazodone HCl (Desyrel) 50 mg PO HS PRN; Protocol PRN Reason: Insomnia Stop: 07/22/17 20:21 Last Admin: 05/25/17 21:49 Dose: 50 mg General: weak HEENT: NC/AT, PERRLA Neck: Supple Cardiovascular: RRR, Normal S1, Normal S2 Abdomen: soft, non-tender, non-distended, positive bowel sound Neurological: alert Internal Medicine Assmt/Plan - Assessment Assessment: afib chronic back pain mild protein calorie malnutrition generalized weakness - Plan Plan: dc planning to snf pain mgmt cbc/bmp in am fall precautions continue current plan of care
[2017-05-27] MEDS: Hydrocodone/APAP 5mg/325mg Tab PO PRN ×3 (05:07→21:48)
--- NOTE | 2017-05-27 13:06 | Consultation ---
DATE OF CONSULTATION: 05/27/2017 REASON FOR CONSULTATION: Clearance for possible discharge to the halfway facility. CHIEF COMPLAINT: "I am is doing well." HISTORY OF PRESENT ILLNESS: This patient is a 66-year-old male, resident of [facility]. Information obtained by directly interviewing the patient as well as reviewing the admission papers. The patient is reported to have been transferred from [facility] because of the atrial fibrillation and chest pain and the patient is being medically cleared and a psychiatric consultation is called to address the issue whether he needs continued psychiatric care or he can return to [facility]. The patient has been very cooperative and has been mentioning for unknown reason. He started to be getting and use "____ not making any sense" few days ago and the patient was taken to the [facility] where he spent 12 days. The patient has been brought over here for chest pain and at this time. The patient psychiatric consultation is called to address the issue of the need for psychiatric hospitalization. During evaluation, the patient is very cooperative and has been mentioning that he has been doing fairly well. He is not hearing any voices or seeing things and there is no reason for him to go to the psychiatric hospital. He would rather go to the [facility]. The patient is also talking about his family coming to visit him today with his 4-year-old grandchild and he is looking forward for that. The patient is making sense and is not presenting with any acute psychosis. PAST PSYCHIATRIC HISTORY: Please refer to the above. The patient is currently on gabapentin 100 mg 3 times a day and olanzapine 5 mg at bedtime and has been able to tolerate the medications. No acute psychotic symptoms are noted. Since the patient is not presenting with any thoughts of hurting himself or others. The patient is motivated to seek treatment on an outpatient basis. DIAGNOSTIC IMPRESSION: Psychosis, not otherwise specified. PLAN: The patient to be going back to [facility] for further care. There is no reason for the patient to be in any acute Psychiatric Unit at this time. Thank you, Dr. Rodriguez for allowing me to participate in the care of the patient. JOB# [id number]
--- NOTE | 2017-05-27 17:01 | Discharge Summary ---
DATE OF DISCHARGE: 05/27/2017 CHIEF COMPLAINTS: Weakness, dizziness and heart pounding. FINAL DIAGNOSES: Atrial fibrillation which is controlled currently, acute back pain, protein-calorie malnutrition, generalized weakness, hypertension, asthma, chronic obstructive pulmonary disease, history of stroke, hypoxemia. HISTORY OF PRESENT ILLNESS: This is a 66-year-old male from [facility], was brought in secondary to generalized weakness and dizziness, and also complaining of back pain and leg pain. The patient admitted for further management. The patient was being followed with Dr. Clayton. The patient also had neurological workup. PHYSICAL EXAMINATION: VITAL SIGNS: Blood pressure 114/78, respiration 18, pulse 67, temperature 97.3. GENERAL: Elderly male, appears stated age. HEART: Regular rate and rhythm with systolic ejection murmur. NECK: Supple. No mass. LUNGS: Equal breath sounds, few rhonchi. ABDOMEN: Soft, globular. EXTREMITIES: Positive excoriations. NEUROLOGIC: Limited. HOSPITAL COURSE: The patient was admitted to medical floor. Head CT was done, which did not show any acute changes, only old stroke. Lumbar CT showed arthritis. The patient was referred to Dr. Houston for Cardiology and Dr. Clayton for psychiatry. The patient was also seen by Dr. Tineo who cleared the patient for discharge. The patient ____. CONDITION ON DISCHARGE: Fair. DISCHARGE INSTRUCTIONS: The patient to continue current care with followup consult recommendations. The patient will be discharged to ____. Case was discussed with the family members. JOB# [id number]
[2017-05-28] MEDS: Hydrocodone/APAP 5mg/325mg Tab PO PRN ×3 (04:19→20:22)
[2017-05-28] MEDS ORDERED: HYDROmorphone 1 mg/mL 1mL Syr IVP ONE ×2 (11:03→22:28)
[2017-05-28 12:06] LABS: ALB/GLOB RATIO 1.5 (1.0-1.8); ALBUMIN 3.3 gm/dL (4.2-5.5); ALKALINE PHOSPHATASE 67 U/L (34-104); ANION GAP 8.3 (7.0-16.0); BILIRUBIN,TOTAL 0.3 mg/dL (0.3-1.0); BUN - UREA NITROGEN 16 mg/dL (7-25); CALCIUM SERUM 8.2 mg/dL (8.6-10.3); CARBON DIOXIDE 27.5 mEq/L (21.0-31.0); CHLORIDE 105 mEq/L (98-107); CREATININE - SERUM 0.6 mg/dL (0.7-1.3); GFR AFRICAN-AMERICAN > 60.0 ml/min (>90); GFR NON AFRICAN-AMERICAN > 60.0 ml/min; GLUCOSE 156 mg/dL (70-105); LIPASE 12 U/L (11-82); MAGNESIUM 2.2 mg/dL (1.9-2.7); POTASSIUM SERUM 3.8 mEq/L (3.5-5.1); SGOT 26 U/L (13-39); SGPT/ALT 24 U/L (7-52); SODIUM SERUM 137 mEq/L (136-145); TOTAL PROTEIN,SERUM 5.5 gm/dL (6.0-8.3)
--- NOTE | 2017-05-28 12:39 | Internal Medicine Prog Note ---
Internal Medicine Subjective - Subjective Patient seen and examined:: with staff, chart reviewed, other (dc held 2 no placement) Patient is:: awake, verbal Per staff patient has:: tolerating meds, other (co abd pain 2 ch pancreatitis) Internal Medicine Objective - Results Result Diagrams: 05/26/17 05:30 05/28/17 11:45 Recent Labs: Laboratory Last Values WBC 7.4 Th/cmm (4.8-10.8) 05/26/17 05:30 RBC 4.26 Mil/cmm (4.30-5.70) L 05/26/17 05:30 Hgb 13.1 gm/dL (12-16) 05/26/17 05:30 Hct 38.7 % (41.0-60) L 05/26/17 05:30 MCV 90.9 fl (80-99) 05/26/17 05:30 MCH 30.8 pg (26.0-30.0) H 05/26/17 05:30 MCHC Differential 33.9 pg (28.0-36.0) 05/26/17 05:30 RDW 14.8 % (11.5-20.0) 05/26/17 05:30 Plt Count 211 Th/cmm (150-400) 05/26/17 05:30 MPV 9.1 fl 05/26/17 05:30 Neutrophils % 63.1 % (40.0-80.0) 05/26/17 05:30 Lymphocytes % 25.4 % (20.0-50.0) 05/26/17 05:30 Monocytes % 7.8 % (2.0-10.0) 05/26/17 05:30 Eosinophils % 3.0 % (0.0-5.0) 05/26/17 05:30 Basophils % 0.7 % (0.0-2.0) 05/26/17 05:30 PT 10.6 SECONDS (9.5-11.5) 05/23/17 13:25 INR 1.02 (0.5-1.4) 05/23/17 13:25 Sodium 137 mEq/L (136-145) 05/28/17 11:45 Potassium 3.8 mEq/L (3.5-5.1) 05/28/17 11:45 Chloride 105 mEq/L (98-107) 05/28/17 11:45 Carbon Dioxide 27.5 mEq/L (21.0-31.0) 05/28/17 11:45 Anion Gap 8.3 (7.0-16.0) 05/28/17 11:45 BUN 16 mg/dL (7-25) 05/28/17 11:45 Creatinine 0.6 mg/dL (0.7-1.3) L 05/28/17 11:45 Est GFR ( Amer) > 60.0 ml/min (>90) 05/28/17 11:45 Est GFR (Non-Af Amer) > 60.0 ml/min 05/28/17 11:45 BUN/Creatinine Ratio 26.7 05/28/17 11:45 Glucose 156 mg/dL (70-105) H 05/28/17 11:45 Calcium 8.2 mg/dL (8.6-10.3) L 05/28/17 11:45 Magnesium 2.2 mg/dL (1.9-2.7) 05/28/17 11:45 Total Bilirubin 0.3 mg/dL (0.3-1.0) 05/28/17 11:45 AST 26 U/L (13-39) 05/28/17 11:45 ALT 24 U/L (7-52) 05/28/17 11:45 Alkaline Phosphatase 67 U/L (34-104) 05/28/17 11:45 Ammonia 57 umol/L (16-53) H 05/25/17 06:20 Creatine Kinase 55 U/L (30-223) 05/23/17 13:25 Troponin I 0.01 ng/mL (0.01-0.05) 05/23/17 13:25 B-Natriuretic Peptide 64.5 pg/mL (5.0-100.0) 05/23/17 13:25 Total Protein 5.5 gm/dL (6.0-8.3) L 05/28/17 11:45 Albumin 3.3 gm/dL (4.2-5.5) L 05/28/17 11:45 Globulin 2.2 gm/dL 05/28/17 11:45 Albumin/Globulin Ratio 1.5 (1.0-1.8) 05/28/17 11:45 Triglycerides 70 mg/dL (<150) 05/23/17 13:25 Cholesterol 108 mg/dL (<200) 05/23/17 13:25 LDL Cholesterol Direct 46 mg/dL (75-193) L 05/23/17 13:25 HDL Cholesterol 55 mg/dL (23-92) 05/23/17 13:25 Amylase < 10 U/L (29-103) L 05/23/17 13:25 Lipase 12 U/L (11-82) 05/28/17 11:45 Vitamin B12 261 pg/mL (232-1245) 05/25/17 06:20 Folic Acid 10.2 ng/mL (>3.0) 05/25/17 06:20 - Physical Exam Vitals and I&O: Vital Signs Temp 97.3 F 05/28/17 04:00 Pulse 70 05/28/17 07:12 Resp 18 05/28/17 07:12 BP 149/81 05/28/17 04:00 Pulse Ox 95 05/28/17 07:12 Intake & Output 05/27/17 05/28/17 05/28/17 18:59 06:59 18:59 Intake Total 1300 Balance 1300 Weight (lbs) 71.668 kg Intake: Oral 1300 Other: # Voids 3 # Bowel Movements 0 Stool Characteristics Formed Formed Active Medications: Current Medications Acetaminophen (Tylenol) 650 mg PO Q4H PRN PRN Reason: Mild Pain Or Fever above 101 Stop: 07/22/17 20:23 Acetaminophen/Hydrocodone Bitart ([place] 5mg/325mg) 1 tab PO Q6H PRN PRN Reason: Pain (Severe) Stop: 07/22/17 20:21 Last Admin: 05/28/17 10:13 Dose: 1 tab Albuterol Sulfate (Albuterol 2.5mg/3ml Neb Ud) 2.5 mg HHN Q2HRT PRN PRN Reason: Shortness of Breath or Wheeze Stop: 07/22/17 20:23 Last Admin: 05/26/17 01:45 Dose: 2.5 mg Alprazolam (Xanax) 0.5 mg PO Q6H PRN; Protocol PRN Reason: Anxiety Stop: 07/22/17 20:21 Last Admin: 05/28/17 12:33 Dose: 0.5 mg Bisacodyl (Dulcolax 10 Mg Supp) 10 mg RC DAILY [facility] Stop: 07/23/17 08:59 Last Admin: 05/28/17 10:14 Dose: 10 mg Clopidogrel Bisulfate (Plavix) 75 mg PO DAILY [facility] Stop: 07/23/17 08:59 Last Admin: 05/28/17 10:13 Dose: 75 mg Diltiazem HCl (Cardizem) 20 mg IVP Q4H PRN PRN Reason: HR Greater than 130 per min Stop: 07/22/17 20:23 Docusate Sodium (Colace) 100 mg PO BID [facility] Stop: 07/23/17 08:59 Last Admin: 05/28/17 10:14 Dose: 100 mg Gabapentin (Neurontin) 100 mg PO TID [facility] Stop: 07/22/17 20:59 Last Admin: 05/28/17 10:14 Dose: 100 mg Guaifenesin (Robitussin) 200 mg PO Q4HR PRN PRN Reason: Cough or Congestion Stop: 07/22/17 20:23 Heparin Sodium (Porcine) (Heparin) 5,000 units SUBQ Q12H [facility] Stop: 07/23/17 20:59 Last Admin: 05/28/17 10:14 Dose: 5,000 units Ketorolac Tromethamine (Toradol) 30 mg IVP Q8HR PRN PRN Reason: Pain (Severe) Stop: 07/25/17 13:40 Last Admin: 05/28/17 00:44 Dose: 30 mg Miscellaneous (Vte Chemical Prophylaxis Screen/ Admission) 1 ea MC PRN PRN PRN Reason: PROTOCOL Stop: 07/23/17 17:06 Mupirocin (Bactroban Oint) 1 appl NS BID [facility] Stop: 05/30/17 09:01 Last Admin: 05/28/17 10:14 Dose: 1 appl Nitroglycerin (Nitrostat) 0.4 mg SL Q5MIN PRN PRN Reason: Chest Pain Stop: 07/22/17 20:21 Olanzapine (Zyprexa) 5 mg PO HS BRANDY PRN Reason: Protocol Stop: 07/22/17 20:59 Last Admin: 05/27/17 21:48 Dose: 5 mg Ondansetron HCl (Zofran Odt) 4 mg PO Q6HR PRN PRN Reason: Nausea / Vomiting Stop: 07/22/17 20:21 Ondansetron HCl (Zofran) 4 mg IV Q8H PRN PRN Reason: Nausea / Vomiting Stop: 07/22/17 20:23 Last Admin: 05/27/17 00:38 Dose: 4 mg Senna (Senna) 8.6 mg PO HS BRANDY Stop: 07/22/17 20:59 Last Admin: 05/27/17 21:48 Dose: 8.6 mg Tamsulosin HCl (Flomax) 0.4 mg PO HS [facility]ANDY Stop: 07/22/17 20:59 Last Admin: 05/27/17 21:48 Dose: 0.4 mg Tramadol HCl (Ultram) 50 mg PO Q6HR PRN PRN Reason: Pain (Moderate) Stop: 07/23/17 13:48 Last Admin: 05/28/17 00:52 Dose: 50 mg Trazodone HCl (Desyrel) 50 mg PO HS PRN; Protocol PRN Reason: Insomnia Stop: 07/22/17 20:21 Last Admin: 05/27/17 21:48 Dose: 50 mg General: weak HEENT: NC/AT, PERRLA Neck: Supple Cardiovascular: RRR, Normal S1, Normal S2 Abdomen: soft, non-tender, non-distended, positive bowel sound Neurological: alert Internal Medicine Assmt/Plan - Assessment Assessment: abd pain ho pancreatitis depression - Plan Plan: pain control will refer to gi check lipase see orders placement pendind
--- NOTE | 2017-05-28 23:50 | Consultation ---
DATE OF CONSULTATION: 05/28/2017 REASON FOR CONSULTATION: Abdominal pain. HISTORY OF PRESENT ILLNESS: This consult was obtained through the courtesy of Dr. Rodriguez for this 66-year-old with extensive story, I am not quite sure how true it is, who has extensive problems and was admitted to the hospital a few days ago for weakness, fatigue, dizziness, palpitations and was found to be in atrial fibrillation. The patient was admitted to the hospital. Meanwhile, he has been malnourished. He has generalized weakness and now has abdominal pain, so GI consult was called in for further evaluation. The patient is also being seen by psychiatrist and has some sort of psychosis. He presents a story that he had pancreatic resection in 1986 that is Whipple surgery at [facility]. During that surgery, they did islet cell transplantation, I think if he had pancreatic cancer. To my knowledge, islet cell transplantation was not established as a surgical procedure in 1986 and definitely [facility] would not have had the ability to do one even up to date. The patient claims that this surgery was a complication of some gallbladder surgery and something made them to believe that he had pancreatic cancer. They resected and then the pathology came back negative and he needed another 6 surgeries to correct this and he was living in [place] and living and moving here and give a long family of family related issues, some of them related to his sister and using the narcotics that he was given for his pain and giving him sterile water or water instead, but then he states that he was in rehabilitation for substance abuse and then he was living with his daughter in [place] and now he is living close to his son here. So the old story is very complicated and unreliable, but the bottom line is the patient is having some abdominal pain. He had some abdominal surgeries and he has some psych problem. PAST MEDICAL HISTORY: Atrial fibrillation, hypertension, asthma, COPD, CVA, TIA. PAST SURGICAL HISTORY: Appendectomy, cholecystectomy and pancreatic surgery as mentioned above. SOCIAL HISTORY: Denies smoking, alcohol or drugs. FAMILY HISTORY: Mother had kidney cancer. REVIEW OF SYSTEMS: He has lost 40 pounds over the last 6 months. He has intermittent nausea, vomiting, diarrhea, constipation. He had previously bleeding, he claims he had numerous endoscopies and colonoscopies, last one was 4 years ago and then at the end of interview, he claims that he has achalasia and it was dilated with a balloon many years ago and they told him next time, he will need to have surgery, but he does not admit to any difficulty swallowing. PHYSICAL EXAMINATION: GENERAL: The patient is awake, oriented to self, place, and time, in no acute distress. VITAL SIGNS: Blood pressure is 106/72, heart rate 68, respiratory rate 18, temperature is 98.3. HEAD AND NECK: Pupils reactive to light. Extraocular muscles intact. Sclerae anicteric. Conjunctivae not pale. Oral cavity, no lesion. NECK: Supple, no jugular venous distention. No carotid bruit or lymph node. CHEST: Good respiratory movements. LUNGS: Clear to auscultation. CARDIOVASCULAR: Regular rate and rhythm. No murmur or gallop. ABDOMEN: There is scar of previous surgery. Abdomen is soft, positive bowel sound, diffusely tender. EXTREMITIES: No edema. CENTRAL NERVOUS SYSTEM: The patient is able to walk, moving 4 extremities, even though he said he was weak. LABORATORY DATA: White count 7.4, H and H of 13.1 and 38.7 with platelets of 211, BUN and creatinine are 16 and 0.6. AST, ALT, bilirubin, alkaline phosphatase are all normal. Ammonia was high and lipase was normal. B12 was normal, so was folic acid. The patient had a head CT, which showed no abnormalities. There is extensive mucosal thickening within the paranasal sinuses. The patient had a lumbar CT, which showed diffuse degenerative changes around the L3 and L4, generalized osteoporosis, mild dilation of the right renal pelvis with dilation visualized portion of the right ureter, but it was of questionable significance. The patient has two psychiatric evaluations while in the hospital and was felt he has psychosis, unspecified. IMPRESSION: A 66-year-old with abdominal pain. ASSESSMENT AND PLAN: 1. Abdominal pain, most probably cardiac-induced hyperesthesia, could be also functional, cannot exclude chronic pain syndrome. The patient has extensive history, is followed by Psychiatry. So at this time, I am not going to start new medications, but we need to contact psychiatrist to see if we can use Elavil to control some of his pain medications. If not, then dicyclomine, but meanwhile continue current management. 2. History of pancreatic surgery, history of diarrhea. The patient might benefit with some pancreatic enzymes, but he claims he does not need them and even though he admits to some diarrhea then later on he retracted his statement, so will follow as an outpatient. If he has diarrhea, then will do stool studies and then start some of these medications. Other medical problems such as hypertension, atrial fibrillation, psychosis, etc., as per Dr. Rodriguez. Thank you Dr. Rodriguez for allowing me to participate in the care of the patient. If you have any further questions, please let me know. [facility]# [id number]
[2017-05-29] MEDS: Hydrocodone/APAP 5mg/325mg Tab PO PRN ×3 (04:57→20:01)
--- NOTE | 2017-05-29 09:11 | Internal Medicine Prog Note ---
Internal Medicine Subjective - Subjective Service Date: 05/29/17 (denies any abdominal pain at this time) Patient is:: awake, verbal Per staff patient has:: tolerating meds, other Internal Medicine Objective - Results Result Diagrams: 05/26/17 05:30 05/28/17 11:45 Recent Labs: Laboratory Last Values WBC 7.4 Th/cmm (4.8-10.8) 05/26/17 05:30 RBC 4.26 Mil/cmm (4.30-5.70) L 05/26/17 05:30 Hgb 13.1 gm/dL (12-16) 05/26/17 05:30 Hct 38.7 % (41.0-60) L 05/26/17 05:30 MCV 90.9 fl (80-99) 05/26/17 05:30 MCH 30.8 pg (26.0-30.0) H 05/26/17 05:30 MCHC Differential 33.9 pg (28.0-36.0) 05/26/17 05:30 RDW 14.8 % (11.5-20.0) 05/26/17 05:30 Plt Count 211 Th/cmm (150-400) 05/26/17 05:30 MPV 9.1 fl 05/26/17 05:30 Neutrophils % 63.1 % (40.0-80.0) 05/26/17 05:30 Lymphocytes % 25.4 % (20.0-50.0) 05/26/17 05:30 Monocytes % 7.8 % (2.0-10.0) 05/26/17 05:30 Eosinophils % 3.0 % (0.0-5.0) 05/26/17 05:30 Basophils % 0.7 % (0.0-2.0) 05/26/17 05:30 PT 10.6 SECONDS (9.5-11.5) 05/23/17 13:25 INR 1.02 (0.5-1.4) 05/23/17 13:25 Sodium 137 mEq/L (136-145) 05/28/17 11:45 Potassium 3.8 mEq/L (3.5-5.1) 05/28/17 11:45 Chloride 105 mEq/L (98-107) 05/28/17 11:45 Carbon Dioxide 27.5 mEq/L (21.0-31.0) 05/28/17 11:45 Anion Gap 8.3 (7.0-16.0) 05/28/17 11:45 BUN 16 mg/dL (7-25) 05/28/17 11:45 Creatinine 0.6 mg/dL (0.7-1.3) L 05/28/17 11:45 Est GFR ( Amer) > 60.0 ml/min (>90) 05/28/17 11:45 Est GFR (Non-Af Amer) > 60.0 ml/min 05/28/17 11:45 BUN/Creatinine Ratio 26.7 05/28/17 11:45 Glucose 156 mg/dL (70-105) H 05/28/17 11:45 Calcium 8.2 mg/dL (8.6-10.3) L 05/28/17 11:45 Magnesium 2.2 mg/dL (1.9-2.7) 05/28/17 11:45 Total Bilirubin 0.3 mg/dL (0.3-1.0) 05/28/17 11:45 AST 26 U/L (13-39) 05/28/17 11:45 ALT 24 U/L (7-52) 05/28/17 11:45 Alkaline Phosphatase 67 U/L (34-104) 05/28/17 11:45 Ammonia 57 umol/L (16-53) H 05/25/17 06:20 Creatine Kinase 55 U/L (30-223) 05/23/17 13:25 Troponin I 0.01 ng/mL (0.01-0.05) 05/23/17 13:25 B-Natriuretic Peptide 64.5 pg/mL (5.0-100.0) 05/23/17 13:25 Total Protein 5.5 gm/dL (6.0-8.3) L 05/28/17 11:45 Albumin 3.3 gm/dL (4.2-5.5) L 05/28/17 11:45 Globulin 2.2 gm/dL 05/28/17 11:45 Albumin/Globulin Ratio 1.5 (1.0-1.8) 05/28/17 11:45 Triglycerides 70 mg/dL (<150) 05/23/17 13:25 Cholesterol 108 mg/dL (<200) 05/23/17 13:25 LDL Cholesterol Direct 46 mg/dL (75-193) L 05/23/17 13:25 HDL Cholesterol 55 mg/dL (23-92) 05/23/17 13:25 Amylase < 10 U/L (29-103) L 05/23/17 13:25 Lipase 12 U/L (11-82) 05/28/17 11:45 Vitamin B12 261 pg/mL (232-1245) 05/25/17 06:20 Folic Acid 10.2 ng/mL (>3.0) 05/25/17 06:20 - Physical Exam Vitals and I&O: Vital Signs Temp 98.0 F 05/29/17 04:00 Pulse 78 05/29/17 08:00 Resp 12 05/29/17 08:00 BP 108/86 05/29/17 04:00 Pulse Ox 96 05/29/17 08:00 Intake & Output 05/28/17 05/29/17 05/29/17 18:59 06:59 18:59 Intake Total 1150 450 Balance 1150 450 Weight (lbs) 158 lb 12.8 oz 158 lb Intake: Oral 1150 450 Other: # Voids 5 # Bowel Movements 1 Stool Characteristics Formed Formed Active Medications: Current Medications Acetaminophen (Tylenol) 650 mg PO Q4H PRN PRN Reason: Mild Pain Or Fever above 101 Stop: 07/22/17 20:23 Acetaminophen/Hydrocodone Bitart (Russell 5mg/325mg) 1 tab PO Q6H PRN PRN Reason: Pain (Severe) Stop: 07/22/17 20:21 Last Admin: 05/29/17 04:57 Dose: 1 tab Albuterol Sulfate (Albuterol 2.5mg/3ml Neb Ud) 2.5 mg HHN Q2HRT PRN PRN Reason: Shortness of Breath or Wheeze Stop: 07/22/17 20:23 Last Admin: 05/26/17 01:45 Dose: 2.5 mg Alprazolam (Xanax) 0.5 mg PO Q6H PRN; Protocol PRN Reason: Anxiety Stop: 07/22/17 20:21 Last Admin: 05/29/17 04:57 Dose: 0.5 mg Bisacodyl (Dulcolax 10 Mg Supp) 10 mg RC DAILY [facility] Stop: 07/23/17 08:59 Last Admin: 05/29/17 08:31 Dose: Not Given Clopidogrel Bisulfate (Plavix) 75 mg PO DAILY [facility] Stop: 07/23/17 08:59 Last Admin: 05/29/17 08:30 Dose: 75 mg Diltiazem HCl (Cardizem) 20 mg IVP Q4H PRN PRN Reason: HR Greater than 130 per min Stop: 07/22/17 20:23 Docusate Sodium (Colace) 100 mg PO BID [facility] Stop: 07/23/17 08:59 Last Admin: 05/29/17 08:30 Dose: 100 mg Gabapentin (Neurontin) 100 mg PO TID [facility] Stop: 07/22/17 20:59 Last Admin: 05/29/17 08:30 Dose: 100 mg Guaifenesin (Robitussin) 200 mg PO Q4HR PRN PRN Reason: Cough or Congestion Stop: 07/22/17 20:23 Heparin Sodium (Porcine) (Heparin) 5,000 units SUBQ Q12H [facility] Stop: 07/23/17 20:59 Last Admin: 05/29/17 08:30 Dose: 5,000 units Ketorolac Tromethamine (Toradol) 30 mg IVP Q8HR PRN PRN Reason: Pain (Severe) Stop: 07/25/17 13:40 Last Admin: 05/28/17 00:44 Dose: 30 mg Miscellaneous (Vte Chemical Prophylaxis Screen/ Admission) 1 ea MC PRN PRN PRN Reason: PROTOCOL Stop: 07/23/17 17:06 Mupirocin (Bactroban Oint) 1 appl NS BID [facility] Stop: 05/30/17 09:01 Last Admin: 05/29/17 08:31 Dose: 1 appl Nitroglycerin (Nitrostat) 0.4 mg SL Q5MIN PRN PRN Reason: Chest Pain Stop: 07/22/17 20:21 Olanzapine (Zyprexa) 5 mg PO HS BRANDY PRN Reason: Protocol Stop: 07/22/17 20:59 Last Admin: 05/28/17 20:22 Dose: 5 mg Ondansetron HCl (Zofran Odt) 4 mg PO Q6HR PRN PRN Reason: Nausea / Vomiting Stop: 07/22/17 20:21 Ondansetron HCl (Zofran) 4 mg IV Q8H PRN PRN Reason: Nausea / Vomiting Stop: 07/22/17 20:23 Last Admin: 05/27/17 00:38 Dose: 4 mg Senna (Senna) 8.6 mg PO HS BRANDY Stop: 07/22/17 20:59 Last Admin: 05/28/17 20:22 Dose: 8.6 mg Tamsulosin HCl (Flomax) 0.4 mg PO HS BRANDY Stop: 07/22/17 20:59 Last Admin: 05/28/17 20:22 Dose: 0.4 mg Tramadol HCl (Ultram) 50 mg PO Q6HR PRN PRN Reason: Pain (Moderate) Stop: 07/23/17 13:48 Last Admin: 05/28/17 00:52 Dose: 50 mg Trazodone HCl (Desyrel) 50 mg PO HS PRN; Protocol PRN Reason: Insomnia Stop: 07/22/17 20:21 Last Admin: 05/28/17 20:46 Dose: 50 mg General: weak HEENT: NC/AT, PERRLA Neck: Supple Cardiovascular: RRR, Normal S1, Normal S2 Abdomen: soft, non-tender, non-distended, positive bowel sound Neurological: alert Internal Medicine Assmt/Plan - Assessment Assessment: afib chronic back pain mild protein calorie malnutrition generalized weakness - Plan Plan: dc planning to snf pain mgmt fall precautions continue current plan of care
[2017-05-29] MEDS: Albuterol Nebulizer 2.5mg/3mL HHN PRN (11:20)
== END 2017-05-29 20:10 | DRG 309 ==
LOC: ER 12:44 → TELE 17:57 → MSI 05-25 11:59
PROVIDERS: ADMIT Internal Medicine; ATTEND Internal Medicine
DX: I48.91 Unspecified atrial fibrillation (principal); E44.1 Mild protein-calorie malnutrition; E86.0 Dehydration; E83.51 Hypocalcemia; G40.909 Epilepsy, unspecified, not intractable, without status epilepticus; I48.92 Unspecified atrial flutter; E88.09 Other disorders of plasma-protein metabolism, not elsewhere classified; I10 Essential (primary) hypertension; J44.9 Chronic obstructive pulmonary disease, unspecified; F29 Unspecified psychosis not due to a substance or known physiological condition; R20.3 Hyperesthesia; G89.29 Other chronic pain; M54.9 Dorsalgia, unspecified; K59.09 Other constipation; R09.02 Hypoxemia; M47.816 Spondylosis without myelopathy or radiculopathy, lumbar region; F32.9 Major depressive disorder, single episode, unspecified; Z86.73 Personal history of transient ischemic attack (TIA), and cerebral infarction without residual deficits; Z68.20 Body mass index [BMI] 20.0-20.9, adult; Z88.5 Allergy status to narcotic agent; Z83.3 Family history of diabetes mellitus; Z82.49 Family history of ischemic heart disease and other diseases of the circulatory system; Z90.49 Acquired absence of other specified parts of digestive tract
CPT/HCPCS: 36415-UA; 70450-TC; 71045-TC; 72131-TC; 80048-TC; 80053-TC; 80061-TC; 82140-TC; 82150-TC; 82550-TC; 82607-90; 82746-90; 83690-TC; 83735-TC; 83880-TC; 84153-90; 84484-TC; 85025-TC; 85610-TC; 93005; 93307-TC; 94760; 96374; J1170; J1644; J1885; J2405; J7030; J7051; J7613; Z7610